=== PATIENT | female | born 1995 | race Caucasian/White ===

== ENCOUNTER 2021-09-14 09:32 | Outpatient (CLI) | payer BC ==
[2021-09-14 10:28] LABS: BHCG - Serum Negative (NEGATIVE); Pregs Control Background? CLEAR/WHITE (CLR/WHITE); Pregs Control Bar Appear? YES (CONTROL BAR)
[2021-09-14 21:25] LABS: SARS-CoV-2 PCR by NAA Not Detected (NotDetected)
== END 2021-09-14 09:33 | disposition home or self-care (01) ==
LOC: LABBT 09:32
PROVIDERS: ATTEND Student in an Organized Health Care Education/Training Program
DX: Z01.812 Encounter for preprocedural laboratory examination (principal); S09.93XA Unspecified injury of face, initial encounter; J35.3 Hypertrophy of tonsils with hypertrophy of adenoids; J35.01 Chronic tonsillitis; J30.9 Allergic rhinitis, unspecified; G47.30 Sleep apnea, unspecified; R53.83 Other fatigue; R40.0 Somnolence; J02.9 Acute pharyngitis, unspecified; R09.81 Nasal congestion; Z20.822 Contact with and (suspected) exposure to COVID-19
CPT/HCPCS: 84703; 85014; U0003; U0005

== ENCOUNTER 2021-09-19 06:19 | Day surgery (SDC) | payer BC ==
[2021-09-15 12:24] VITALS: BMI 20.5
[2021-09-19] MEDS ORDERED: Midazolam HCl 2 mg/2 ml Vial ONE (07:31)
[2021-09-19] MEDS ORDERED: fentaNYL Citrate/PF 100 MCG/2 ML SYRINGE ONE (07:54)
[2021-09-19] MEDS ORDERED: Famotidine/PF 20 mg/2ml Vial ONE (07:54)
[2021-09-19] MEDS ORDERED: SUGAMMADEX SODIUM 200 MG/2 ML VIAL ONE (07:54)
[2021-09-19] MEDS ORDERED: Lidocaine 1% PF 5 ML VIAL ONE (08:07)
[2021-09-19] MEDS ORDERED: Rocuronium Bromide 10 MG/ML (10ML VIAL) ONE (08:07)
[2021-09-19] MEDS ORDERED: Dexamethasone 20 MG/5 ML VIAL ONE (08:07)
[2021-09-19] MEDS ORDERED: PROPOFOL 200 MG/20 ML VIAL ONE (08:07)
[2021-09-19] MEDS ORDERED: Ondansetron PF 4 MG/2 ML Vial ONE (08:07)
[2021-09-19] MEDS ORDERED: Meperidine HCl/PF 25 MG/ML VIAL ONE (08:55)
== END 2021-09-19 10:08 | disposition home or self-care (01) ==
LOC: SDC 06:19
PROVIDERS: ATTEND Student in an Organized Health Care Education/Training Program
PROC: 0CTPXZZ Resection of Tonsils, External Approach (ICD-10-PCS; principal; 2021-09-19)
DX: J03.91 Acute recurrent tonsillitis, unspecified (principal); J35.01 Chronic tonsillitis; F10.11 Alcohol abuse, in remission; J30.9 Allergic rhinitis, unspecified; G47.30 Sleep apnea, unspecified; Z86.16 Personal history of COVID-19; Z87.891 Personal history of nicotine dependence; Z79.899 Other long term (current) drug therapy
CPT/HCPCS: 88304; J1100; J2175; J2250; J2405; J2704; S0028